=== PATIENT | female | born 1995 | race Caucasian/White ===

== ENCOUNTER 2025-04-26 07:05 | Emergency (ER) | payer SELFPAY ==
[2025-04-26] VITALS (8 sets, daily range): BP systolic 107–153; BP diastolic 73–89; PULSE 57–80; RESP 15–19; TEMP 36.8; O2SAT 100
--- NOTE | ~2025-04-26 | XR_ITS ---
Clinical Indication: Chest pain PA and lateral views of the chest: Comparison: None Findings: The lungs are clear, without evidence of focal consolidation or pleural effusion. Cardiome diastinal silhouette is within normal limits. Bones and soft tissues are unremarkable. Impression: Normal chest. Reviewed, dictated and finalized at location . Impression: Normal chest.
--- NOTE | 2025-04-26 07:11 | ECG_ITS ---
Test Date: 2025-04-26 07:18:40 Measurements Intervals [place] Rate: 73 P: 42 MI: 145 QRS: 46 QRSD: 77 T: 37 QT: 383 QTc: 423 Interpretive Statements SINUS RHYTHM MINIMAL Q WAVES- INFERIOR LEADS BORDERLINE ECG No previous ECG available for comparison Electronically Signed On 04-26-2025 07:20:49 CDT by Domingo Doyle D.O.
[2025-04-26 07:27] LABS: Basophils Percent Auto 0.3 % (0.2-1.2); Eosinophils Absolute Auto 0.1 K/mm3 (0-0.3); Eosinophils Percent Auto 1.6 % (0-4.4); Hematocrit 41.9 % (37.0-47.0); Hemoglobin 13.9 g/dL (12.0-15.0); Immature Granulocyte Absolute 0.01 K/mm3 (0.00-0.031); Immature Granulocyte Percent A 0.1 % (0-0.5); Lymphocytes Absolute Auto 2.58 K/mm3 (0.9-3.2); Lymphocytes Percent Auto 37.1 % (18.3-44.2); Mean Corpuscular HGB Conc 33.2 g/dl (32-36); Mean Corpuscular Hemoglobin 27.3 pg (26-34); Mean Corpuscular Volume 82.2 fl (80-100); Mean Platelet Volume 10.5 fl (7.4-10.4); Monocytes Absolute Auto 0.6 K/mm3 (0.1-0.6); Monocytes Percent Auto 8.1 % (2.6-8.5); Neutrophils Absolute Auto 3.7 K/mm3 (1.3-6.7); Neutrophils Percent Auto 52.8 % (45.5-73.1); Platelet Count Result 286 k/mm3 (150-375)
[2025-04-26] MEDS: KETOROLAC 15 MG/ML VIAL (*BKC) IV PUSH (07:29)
[2025-04-26 07:36] LABS: Alanine Aminotransferase 21 U/L (6-35); Albumin Level 4.4 g/dL (3.5-5.1); Alkaline Phosphatase 90 U/L (38-126); Anion Gap 9 mmol/L (4-12); Aspartate Amino Transferase 29 U/L (14-36); Bilirubin,Total 0.6 mg/dL (0.2-1.3); Blood Urea Nitrogen 13 mg/dL (7-17); Calcium 9.1 mg/dL (8.4-10.2); Carbon Dioxide 23 mmol/L (22-30); Chloride 106 mmol/L (98-107); Estimated Glomerular Filt Rate > 60; Glucose 99 mg/dL (65-110); Lipase 61 U/L (23-300); Potassium 3.8 mmol/L (3.4-5.0); Sodium 138 mmol/L (137-145); Total Protein 7.8 g/dL (6.3-8.2)
--- OUTSIDE RECORDS SUMMARY | 2025-04-26 07:38 | XMS_ITS | Clinical Summary ---
Author Organization [facility] Address [address] [place] [address] Phone Care Team Providers Care Roofer Apprentice Name Role Phone Abdi Sawyer MD Primary Care Provider Allergies No known active allergies Medications acetaminophen (TYLENOL) 325 mg tablet Take 650 mg by mouth every 4 hours as needed. Active naproxen (NAPROSYN) 500 mg tablet Take 1 Tablet (500 mg) by mouth 2 times daily with meals Po pc bid. 20 Tablet 06/23/2019 Active lidocaine (LIDODERM) 5 % Adhesive Patch, Medicated Apply 1 Patch to affected area every 24 hours. 30 Patch 06/23/2019 Active dicyclomine (BENTYL) 10 mg capsule Take 1 Capsule (10 mg) by mouth 4 times daily. 20 Capsule 07/22/2021 Active Social History Tobacco Use Types Packs/Day Years Used Date Smoking Tobacco: Never Smokeless Tobacco: Never Alcohol Use Standard Drinks/Week Comments No 0 (1 standard drink = 0.6 oz pur e alcohol) Comments No Sex and Gender Information Value Date Recorded Sex Assigned at Not on file Legal Sex Female 9:02 AM CDT Gender Identity Not on file Sexual Orientation Not on file Last Filed Vital Signs Vital Sign Reading Time Taken Comments Blood Pressure 129/79 07/22/2021 1:00 PM CDT Pulse 59 07/22/2021 1:00 PM CDT Temperature 36.8 C (98.2 F) 07/22/2021 1:00 PM CDT Respiratory Rate 16 07/22/2021 1:00 PM CDT Oxygen Saturation 100% 07/22/2021 1:00 PM CDT Inhaled Oxygen Concentration - - Weight 49.9 kg (110 lb) 07/22/2021 10:08 AM CDT Height 142.2 cm (4' 8) 07/22/2021 10:08 AM CDT Body Mass Index 24.66 07/22/2021 10:08 AM CDT Plan of Treatment Health Maintenance Due Date Last Done Comments DTAP/TDAP/TD VACCINES (1 - Tdap) 2012 HEPATITIS B VACCINES (1 of 3 - 19+ 3-dose series) 2012 HPV/Cotest (21-29) 2014 CERVICAL CANCER SCREENING 2023 HPV/Cotest (30-65) 2023 PAP SMEAR 2023 INFLUENZA VACCINE (#1) 2024 HPV VACCINES Aged Out No longer eligi ble based on patient's age to complete this topic Care Teams Roofer Apprentice Relationship Specialty Start Date End Date Abdi Sawyer MD PCP - General Internal Medicine 07/22/21
--- OUTSIDE RECORDS SUMMARY | 2025-04-26 07:38 | XMS_ITS | Continuity of Care Document ---
Author Organization [facility] Address [address] [place] [address] Phone Care Team Providers Care Card Grader Name Role Phone Mago Casiano MD Unavailable Unavailabl e Allergies, Adverse Reactions, Alerts Substance Reaction Status Criticality No Known Allergies Active No Inform ation Medications Medication Instructions Dosage Effective Dates (start - stop) Status Comments Anusol-HC 2.5 % topical cream with perineal applicator apply by topical route 2- 4 times every day a thin layer to the affected area(s) for hemorrhoids 0.00 - Active Colace 100 mg capsule take 1 capsule by oral route every day at bedtime as needed for constipation 100 MG - Active fluticasone 50 mcg/actuation nasal spray,suspension spray 1 spray by intranasal route 2 times every day in each nostril - Active ibuprofen 600 mg tablet take 1 tablet by oral route 3 times every day with food as needed for headache - Active omeprazole 20 mg capsule,delayed release take 1 Capsule by oral route every day before a meal 20 MG - Active Procedures Procedure Date OFFICE OUTPT EST 25 MIN Resin Composite, 3 Surfaces, Posterior N Resin 4/> surf or w incisal angle (anter ior) Office Visit (No Chrg) Scaling In Presence Of Gen M oderate/Severe Gingival Inflam-Full Mouth After Eval Comprehensive Oral Evaluation-New/Est Pt Full Mouth Series Of Radiographic Images Dental Panoramic Radiographic Image OFFICE/OUTPATIENT VISIT, NEW Urinalysis, Auto, w/o Scope URINE TEST, BY VISUAL COLOR CO MPARISON METHODS Advance Directives Directive Yes / No Effective Date File Name No Information Encounters Encounter Description Practice Location Reason(s) For Visit Diagnoses Date Provider Providers Copied on Encounter OFFICE OUTPT EST 25 MIN [facility], [address], [place], [place], [id number] , tel: [phone] [facility] boil on buttock area (chief complaint) Body mass index (BMI) 26.0-26.9, adultThrombosed hemorrhoidConstipa tion [address] [facility]. [address], [place], [place], [address], [place]. tel:[phone] [facility], [address], [place], [place], [address] , tel: [phone] [facility] Dental caries, unspecified 8 No Information Referring Provider: Lillian Camacho, [address], [place], [address] . tel:[phone] [facility], [address], [place], [place], [address] , tel: [phone] [facility] Dental caries, unspecified 8 No Information [facility], [address], [place], [place], [address] , tel: [phone] [facility] Encounter for dental exam and cleaning w/o abnormal findings 8 No Information Referring Provider: Ramez Banks, [address], [place], [address] . tel:[phone] [facility], [address], [place], [place], [address] , tel: [phone] [facility] Chronic gingivitis, plaque induced 0 8 No Information Referring Provider: Ramez Banks [address], [place], [address] . tel:[phone] [facility], [address], [place], [place], [address] , tel:[phone] [facility] Encounter for dental exam and cleaning w/o abnormal findings 8 No Information Referring Provider: George Reyes [address], [place], [address] . tel:[phone] OFFICE/OUTPA TIENT VISIT, [facility], [address], [place], [place], [address] , tel:[phone] [facility]gent [facility] abdominal pain (chief complaint) headache (chief complaint) HeadacheGERD without esophagitisOther specified disorders of Eustachian tube, bilateral Feb- [facility]. [address], [place], [place], [address], [place]. tel:[phone] Referring Provider: George Reyes [address], [place], [address] . tel:[phone] Family History Family Member Type Diagnosis Age At Onset No Information Payers Payer name Insurance type Covered democrat ID Authoriza tion(s) No Information Social History Type Description Quantity Date Captured Comments Alcohol Use Details Unknown Caffeine Use Details No Tobacco Use Status Never smoked tobacco 2020 Smoking Status Never smoker Non-Smoking Tobacco Use Details : No Details Available : No Details Available Sex Female Vital Signs Date / Time: Height Weight BMI Pulse Rate Blood Pressure Temperature Respiratory Rate Body Surface Area Head Circumference Head Circ. Percentile Wt./[place]. Percentile BMI percentile Pulse Ox Inhaled Ox 12:10 PM 53.35 in 48.988 kg (108.00 lbs) 26.6 8 kg/m eter (2) 74 /min 129/86 mm[Hg] 97.30 F 16 /min 1.36 meter(2) 98 % 21 % Chief Complaint And Reason For Visit From encounter dated '04/18/2021 11:45'. boil on buttock area (chief complaint). Description: 25 yo female presents with boil on her lower buttocks on the left side x 3 days. She has been using Tucks pads which have helped reduce the size of the lesion. It is very painful and prevents her from sitting down. It is red and inflammed. She denies fever, chills, night sweats, drainage. No PMH of DM. Ibuprofen did not help the pain. Reason For Referral Reason For Referral No Information Plan Of Treatment Date Type Action Status Nutrition Recommendation Nutrition therap y completed History Of Present Illness Encounter Date Complaint History Of Prese nt Illness boil on buttock area 25 yo femal e presents with boil on her lower buttocks on the left side x 3 days. She has been using Tucks pads which have helped reduce the size of the lesion. It is very painful and prevents her from sitting down. It is red and inflammed. She denies fever, chills, night sweats, drainage. No PMH of DM. Ibuprofen did not help the pain. headache C/O frontal head ache for several days. No fever, chills, visual changes, blurred vision, diplopia, loss of vision, posterior headache, purulent rhinorrhea, sore throat, cough or sputum. Denies h/o significant headaches. abdominal pain C/O midepi and L UQ abd discomfort with burning sensation into chest at times, for several days. Not better or worse with eating because she is not eating. No emesis, hematemesis, diarrhea. No known bad food or other exposure. Some right sided flank pain at times, especially when bends at work. Functional Status Date Functional Assessmen t Pain Score 8/10 Instructions Date Instruction Additional Infor jacob You appear to have a blood clot inside your hemorrhoid. Please use Anusol cream as directed. Please use preparation H (over the counter) to help with itching. Please sit in a sitz bath 15 minutes three times a day. Need to treat constipation. If pain worsens, please follow up with a general surgeon or go to the emergency room. Related to Thrombosed hemorrhoid Please take colace 1 00mg daily, this is a stool softener.Please take a fiber supplement (fiber gummy vitamins, or Miralax) and increase fiber in your diet. Stay hydrated as dehydration can cause constipation. Do not strain or push with bowel movements. Related to Constipation Giving encouragement to exercise Related to Body mass index [BMI] 26.0-26.9, adult Assessments Type Assessment Date assessment Body mass index [BMI] 26.0-26.9, adult assessment Thrombosed hemorrhoid assessment Constipation Mental Status Date Cognitive Assessment Orientation - [place] ed to time, place, person, situation. Patient Care Teams Name Effective Dates (start - stop) Status Members No Information
[2025-04-26 07:39] LABS: Prothrombin Time 13.5 Seconds (11.1-14.7)
[2025-04-26 07:40] LABS: Partial Thromboplastin Time 29.9 Seconds (22.3-36.8)
[2025-04-26 07:43] LABS: D Dimer 0.23 ug/mL (<0.48)
[2025-04-26 07:49] LABS: Troponin I < 0.012 ng/mL (0.000-0.034)
--- NOTE | 2025-04-26 07:56 | ED_ITS ---
HPI - Chest Pain General Chief Complaint: Chest Pain Stated Complaint: sharp pain to chest when bending over Time Seen by Provider: 04/26/25 07:22 History of Present Illness HPI narrative: Pt presents with sharp left side CP since last night. Pt says she has intermittent sharp stabbing pains to left chest which make her feel SOB. Pt denies cough or fever or leg pain or recent trips or surgeries or Hx of blood clots. Related Data Allergies Allergy/AdvReac Type Severity Reaction Status Date / Time No Known Allergies Allergy Verified 04/26/25 07:11 Review of Systems 2 Review of Systems: All systems reviewed & are unremarkable except as noted in HPI and below Exam 2 Const: General: cooperative, healthy appearing and no acute distress O rientation/consciousness: patient oriented x3 Limitations: no limitations HENMT: Head: normal to inspection Chest: Chest palpation & inspection: normal inspection of the chest and tenderness (left anterior chest to palpation) Resp: Effort & Inspection: normal respiratory effort Auscultation: clear to auscultation bilaterally Cardio: Rate: regular rate Rhythm: regular rhythm GI: Inspection: normal to inspection GI Palp: Yes Soft to palpation and No Tenderness to palpation present (GI) Auscultation: normal bowel sounds Back/Spine/Pelvis: Back: no CVA tenderness Skin: General skin exam: normal color and no rashes or lesions noted Neuro: General: patient oriented x3 Speech: normal speech Extrem: General: normal to inspection, full ROM and no clubbing, cyanosis or edema Psych: Appearance: grossly normal Mental Status: mental status grossly normal Affect: normal affect Attitude: cooperative Course Vital Signs Vital signs: Vital Signs Temperature 98.3 F 04/26/25 07:09 Pulse Rate 68 04/26/25 07:09 Respiratory Rate 18 04/26/25 07:09 Blood Pressure 138/89 04/26/25 07:09 Pulse Oximetry 100 04/26/25 07:09 Oxygen Delivery Room Air 04/26/25 07:09 Temperature 98.3 F 04/26/25 07:09 Pulse Rate 57 L 04/26/25 08:45 Respiratory Rate 15 04/26/25 08:45 Blood Pressure 153/73 H 04/26/25 08:45 Pulse Oximetry 100 04/26/25 08:45 Oxygen Delivery Room Air 04/26/25 07:16 MDM - Chest Pain MDM Narrative Medical decision making narrative: Pt presents with left sided CP which is reproducible on exam. likely musculoskeletal but will rule out acs with ekg and labs. will get cxr to rule out pneumo or pneumonia and d dimer. if dimer neg not likely PE. Will give toradol for pain. labs and cxr and ekg unremarkable. Pt feels better after toradol. likely musculoskelatal cause. home on naprosyn and robaxin Lab Data 04/26/25 07:21 04/26/25 07:21 Labs: Lab Results 04/26/25 Range/Units 07:21 WBC 7.0 (4.5-10.0) K/mm3 RBC 5.10 (4.2-5.4) M/mm3 Hgb 13.9 (12.0-15.0) g/dL Hct 41.9 (37.0-47.0) % MCV 82.2 (80-100) fl MCH 27.3 (26-34) pg MCHC 33.2 (32-36) g/dl RDW 13.0 (11.5-14.5) % Plt Count 286 (150-375) k/mm3 MPV 10.5 H (7.4-10.4) fl Immature Gran % (Auto) 0.1 (0-0.5) % Neut % (Auto) 52.8 (45.5-73.1) % Lymph % (Auto) 37.1 (18.3-44.2) % [place] % (Auto) 8.1 (2.6-8.5) % Eos % (Auto) 1.6 (0-4.4) % Baso % (Auto) 0.3 (0.2-1.2) % Lymph # (Auto) 2.58 (0.9-3.2) K/mm3 [place] # (Auto) 0.6 (0.1-0.6) K/mm3 Eos # (Auto) 0.1 (0-0.3) K/mm3 Baso # (Auto) 0.0 (0.0-0.1) K/mm3 Abs Immat Gran (auto) 0.01 (0.00-0.031) K/mm3 Absolute Neuts (auto) 3.7 (1.3-6.7) K/mm3 Absolute Nucleated RBC 0.000 (0.0-0.012) K/mm3 Nucleated RBC % 0.0 (0.0-0.2) % PT 13.5 (11.1-14.7) Seconds INR 1.0 APTT 29.9 (22.3-36.8) Seconds D-Dimer 0.23 (<0.48) ug/mL Sodium 138 (137-145) mmol/L Potassium 3.8 (3.4-5.0) mmol/L Chloride 106 (98-107) mmol/L Carbon Dioxide 23 (22-30) mmol/L Anion Gap 9 (4-12) mmol/L BUN 13 (7-17) mg/dL Creatinine 0.55 L (0.7-1.0) mg/dL Estim Creat Clear Calc Not Reportable Estimated GFR > 60 (59 - ) Glucose 99 (65-110) mg/dL Calcium 9.1 (8.4-10.2) mg/dL Total Bilirubin 0.6 (0.2-1.3) mg/dL AST 29 (14-36) U/L ALT 21 (6-35) U/L Alkaline Phosphatase 90 (38-126) U/L Troponin I < 0.012 (0.000-0.034) ng/mL Total Protein 7.8 (6.3-8.2) g/dL Albumin 4.4 (3.5-5.1) g/dL Lipase 61 (23-300) U/L ECG Data EKG #1: Interpretation: nsr rate [address] or t wave changes, normal pr Discharge Plan Discharge Clinical Impression: Acute chest wall pain Patient Disposition: Home Condition: Improved Instructions: Antibiotic Form, Chest Wall Pain (ED) Patient Language: Romanian Prescriptions: New naproxen [Naprosyn] 500 mg tablet 500 mg PO BID Qty: 20 0RF methocarbamol 750 mg tablet 750 mg PO TID Qty: 30 0RF Follow-up/Referrals: PHYSICIAN,[employer] [Primary Care Provider] - Nilson Blanco MD [Physician] - Stand Alone Forms: Work/School Release IP
== END 2025-04-26 09:09 | disposition home or self-care (01) ==
PROVIDERS: Emergency Provider Emergency Medicine
DX: R07.89 Other chest pain (principal); R94.31 Abnormal electrocardiogram [ECG] [EKG]
CPT/HCPCS: 36415; 71046; 80053; 83690; 84484; 85025; 85380; 85610; 85730; 93005; 96374; 99284; J1885